=== PATIENT | female | born 1980 | race Caucasian/White ===

== ENCOUNTER 2024-11-06 08:14 | Outpatient (REF) | payer BC, SELFPAY ==
[2024-11-06 15:58] LABS: Ferritin 95 ng/mL (10-250)
[2024-11-06 16:04] LABS: Folate 6.1 ng/mL (> or = 4.0); Vitamin B12 480 pg/mL (200-900)
[2024-11-07 10:13] LABS: Lyme Blot 1.30 index
[2024-11-08 10:15] LABS: Lyme Abs Screen POSITIVE
[2024-11-08 11:53] LABS: Anti Nuclear Antibody Screen NEGATIVE (NEGATIVE)
[2024-11-14 12:38] LABS: 39KD (IgG) Band NON-REACTIVE; 41KD (IgG) Band NON-REACTIVE; Lyme IgG Blot Interp NEGATIVE (NEGATIVE); Lyme IgM Blot Interp NEGATIVE (NEGATIVE)
== END 2024-11-06 08:15 | disposition home or self-care (01) ==
LOC: HO.HKASLDS 08:14
PROVIDERS: PCP Physician Assistant Medical; Visit Provider Psychiatry & Neurology Neurology
DX: R20.2 Paresthesia of skin (principal); R29.6 Repeated falls; M54.9 Dorsalgia, unspecified; G43.109 Migraine with aura, not intractable, without status migrainosus; G89.29 Other chronic pain
CPT/HCPCS: 36415; 82607; 82728; 82746; 86038; 86617; 86618

== ENCOUNTER 2024-11-06 08:14 | Outpatient (AMB) | payer BC, SELFPAY ==
--- NOTE | 2024-11-06 08:16 | A.OFFVIS_ITS ---
Vital Signs 11/06/24 08:20 Height 5 ft 8 in Weight 135 lb BMI 20.5 BP 104/70 Blood Pressure Location Rt brachial Position Sitting Pulse 78 Pulse Source Pulse Oximeter Pulse Oximetry (%) 100 Oxygen Delivery Method Room Air Intake Visit Reasons: ENP-Chronic Headache/Falls/Paresthesias/Numb Intake Note: Patioent presents for chronic headaches Allergies escitalopram (From Lexapro) Allergy (Severe, Verified 11/06/24 08:21) fatigue Penicillins Allergy (Severe, Verified 11/06/24 08:21) Hives azithromycin (From Zithromax) Allergy (Unknown, Verified 11/06/24 08:21) Unknown sulfamethoxazole (From Bactrim) Allergy (Unknown, Verified 11/06/24 08:21) Unknown trimethoprim (From Bactrim) Allergy (Unknown, Verified 11/06/24 08:21) Unknown Medication List - Last Reconciled 11/06/24 by Leila Vega MD citalopram 40 mg PO DAILY sumatriptan succinate 50 mg PO Q2-4H PRN topiramate 200 mg PO DAILY HPI Comments Details: 44y/o Right handed female comes for evaluation of chronic headaches, tingling , numbness - feet , falls . She started having headaches as a teenager - mostly stress related. Currently has severe migraines 1-2 /month and has daily low grade headaches. The migraines s starts with losing peripheral vision , takes imitrex, has a piercing stabbing pain in fronto temporal region, nausea, photophobia, phonophobia, occasional vomiting, loss of vision - can last few hrs to 1 day followed by 1 day of feeling fatigued she also describes daily headaches- low grade, frontal headaches with occasional neck and occipital region .she is able work through it . she started having tingling in her feet- plantar surfaces about 1 year ago. she denies numbness or weakness. she started having frequent falls about 9 mths ago - 6-7 falls from Dec 2023-Jan 2025 . Most were on stairs and while walking - tripping. No falls since then SHe has intermittent back discomfort . she also has bowel incontinence ? occasionally she denies any urinary incontinence. she has depression and is on medictaions she has excessive dyatime fatigue sleeps good at night [facility] Medical History (Updated 11/06/24 @ 10:41 by Leila Vega MD) Chronic headaches Migraine with aura Back pain Falls frequently Bilateral leg paresthesia Right shoulder tendonitis Arthritis of right hip Bicuspid aortic valve Weight loss Arthritis Allergies Hyperlipidemia Depression Surgical History H/O rhinoplasty History of rotator cuff surgery H/O total hysterectomy H/O tubal ligation Hx of tonsillectomy Family History Maternal Aunt Breast CA Social History Alcohol intake: never Patient Tobacco Use Status: Never used Tobacco Physical Exam Vital Signs: Last Vital Signs Pulse 78 11/06/24 08:20 BP 104/70 11/06/24 08:20 Pulse Ox 100 11/06/24 08:20 Oxygen Delivery Method Room Air 11/06/24 08:20 BMI result Body Mass Index 20.5 Const General: cooperative, healthy appearing, comfortable and no acute distress Nutritional Appearance: average body habitus Orientation/consciousness: patient oriented x3 Eyes Pupils: Equal, round and reactive pupils present Neuro General: patient oriented x3, gait normal, tone normal, moves all extremities and no focal motor deficits Cranial nerves: Yes Facial sensation intact/muscles of mastication intact, Yes Equal, round and reactive pupils present, Yes Bilaterally intact EOM present, Yes Nystagmus not present, Yes Normal facial strength present, Yes Midline tongue present, Yes Symmetric palate elevation present and Yes Ability to bilaterally elevate shoulders present Cognition (Neuro): normal cognition Gait exam (Neuro): Normal gait present Motor exam (neuro): 5/5 motor strength present throughout and Normal motor muscle tone present throughout Deep tendon reflexes (DTR's): Right triceps reflex intensity grade: 2+, Left triceps reflex intensity grade: 2+, Rt Biceps (C5, C6): 2+, Left biceps reflex intensity grade: 2+, Right brachioradialis reflex intensity grade: 2+, Left brachioradialis reflex intensity grade: 2+, Right patellar reflex intensity grade: 3+, Left patellar reflex intensity grade: 3+, Right ankle reflex intensity grade: 4+ and Left ankle reflex intensity grade: 3+ Results Reviewed Results Reviewed: MRI BRain w/wo MRI C spine w/wo MRi T spine w/wo Assessment & Plan Assessment & Plan (1) Bilateral leg paresthesia: Code(s): R20.2 - Paresthesia of skin Category: Medical (2) Falls frequently: Comment: Dec -Feb 2024 had multiple falls when she was walking up or down the stairs Code(s): R29.6 - Repeated falls Category: Medical (3) Back pain: Code(s): M54.9 - Dorsalgia, unspecified Category: Medical (4) Migraine with aura: Code(s): G43.109 - Migraine with aura, not intractable, without status migrainosus Category: Medical (5) Chronic headaches: Code(s): R51.9 - Headache, unspecified; G89.29 - Other chronic pain Category: Medical Plan MRI LS spine EMG NCS LE Labs- Ferritin Vit B 12 JOSE FRANCISCO Lyme Ferritin Orders: Orders NE nerve conduction velocity 11/06/24 M54.9 - Dorsalgia, unspecified, R20.2 - Paresthesia of skin, R29.6 - Repeated falls Vitamin B12 and Folate 11/06/24 R20.2 - Paresthesia of skin Ferritin 11/06/24 R20.2 - Paresthesia of skin JOSE FRANCISCO Reflex Titer and Pattern 11/06/24 R20.2 - Paresthesia of skin MR lumbar spine wo/w con 11/06/24 M54.9 - Dorsalgia, unspecified, R20.2 - Paresthesia of skin, R29.6 - Repeated falls NE electromyogram (EMG) 11/06/24 M54.9 - Dorsalgia, unspecified, R20.2 - Paresthesia of skin, R29.6 - Repeated falls Lyme IgG/IgM w/reflex to WB 11/06/24 R20.2 - Paresthesia of skin Coding Level of Care Code New Pt Level 4 (76781) Complex EM visit Add On G2211 Diagnoses Bilateral leg paresthesia R20.2 Falls frequently R29.6 Back pain M54.9 Migraine with aura G43.109 Chronic headaches R51.9; G89.29
[2024-11-06 08:20] VITALS: BP 104/70; PULSE 78; O2SAT 100; BMI 20.5
== END 2024-11-06 08:57 | disposition home or self-care (01) ==
LOC: HO.HSMS 08:14
PROVIDERS: PCP Physician Assistant Medical; Visit Provider Psychiatry & Neurology Neurology
DX: R20.2 Paresthesia of skin (principal); R29.6 Repeated falls; M54.9 Dorsalgia, unspecified; G43.109 Migraine with aura, not intractable, without status migrainosus; R51.9 Headache, unspecified; G89.29 Other chronic pain
CPT/HCPCS: 99204

== ENCOUNTER 2024-11-24 12:39 | Outpatient (REF) | payer BC, SELFPAY ==
--- NOTE | ~2024-11-24 | MR_ITS ---
EXAMINATION: MR LUMBAR SPINE WITHOUT AND WITH CONTRAST CLINICAL INFORMATION: Paresthesia the skin COMPARISON: None available. TECHNIQUE: MRI of the lumbar spine was obtained using routine sequences with and without contrast. Intravenous contrast: Gadolinium based (Gadavist) 6.0 mL. No reported immediate complications. FINDINGS: Last rib-bearing vertebra labeled T12. No bone marrow STIR signal abnormality. No abnormal enhancement within the neural elements of the thecal sac or the prevertebral compartment of the axial skeleton. Normal alignment. Conus medullaris ends at pedicle of L1 with normal signal. Spina bifida occulta S1, congenital. T12-L1: No disc herniation. No neuroforamina stenosis. L1-2: No disc herniation. No neuroforamina stenosis. L2-3: No disc herniation. No neuroforamina stenosis. L3-4: Broad-based disc bulging. Facet joint hypertrophy. No compression upon neural elements. L4-5: Broad-based disc bulging abutting the L5 nerve roots on the lateral recesses. Bilateral neuroforamina narrowing encroaching the exiting nerve roots. Facet joint hypertrophy. L5-S1: Broad-based disc bulging. Facet joint hypertrophy. No central spinal canal stenosis. Bilateral neuroforamina narrowing likely encroaching the L5 exiting roots. No prevertebral compartment hematoma, mass or fluid collection. Subcentimeter cyst, right kidney.. MR/MR lumbar spine wo/w con IMPRESSION: No abnormal enhancement. No acute fracture or listhesis. Spondylosis L4-5 and L5-S1 resulting in bilateral neuroforamina narrowing. No disc herniation and/or extrusion. Electronically signed by: Nima Garcia MD 11/24/2024 01:57 PM EDT
== END 2024-11-24 12:40 | disposition home or self-care (01) ==
LOC: HO.MRI 12:39
PROVIDERS: Visit Provider Psychiatry & Neurology Neurology
DX: R20.2 Paresthesia of skin (principal); R29.6 Repeated falls; M54.9 Dorsalgia, unspecified
CPT/HCPCS: 72158; A9585

== ENCOUNTER → 2024-11-24 12:39 | Outpatient (BNV) | payer BC, SELFPAY | PROVIDERS: Visit Provider Radiology Diagnostic Radiology | DX: M47.817 Spondylosis without myelopathy or radiculopathy, lumbosacral region (principal) | CPT/HCPCS: 72158 ==

== ENCOUNTER 2024-12-29 13:51 | Outpatient (REF) | payer BC, SELFPAY ==
--- NOTE | 2024-12-29 13:53 | EMG_ITS ---
Chief complaint: Bilateral leg paresthesias, frequent falls Reason for referral: Evaluate for radiculopathy versus neuropathy Referred by: Dr. Vega Procedure done: Bilateral lower extremity NCS/EMG Precautions and/or limitations: None The limb temperature was monitored continuously and remained between 32-36 degrees C during the performance of the NCS. Nerve Conduction Studies Anti Sensory Summary Table ?Stim Site NR Onset (ms) Norm Onset (ms) Peak (ms) Norm Peak (ms) O-P Amp (?V) Norm O-P Amp Site1 Site2 Delta-0 (ms) Dist (cm) Umberto (m/s) Norm Umberto (m/s) Left Sural Anti Sensory (Lat Mall) Calf ? 3.3 3.8 <4.0 10.2 >5.0 Calf Lat Mall 3.3 14.0 42 Right Sural Anti Sensory (Lat Mall) Calf ? 2.9 4.0 <4.0 20.6 >5.0 Calf Lat Mall 2.9 14.0 48 Motor Summary Table ?Stim Site NR Onset (ms) Norm Onset (ms) O-P Amp (mV) Norm O-P Amp iAmp (mV) Amp (1st) (%) Site1 Site2 Delta-0 (ms) Dist (cm) Umberto (m/s) Norm Umberto (m/s) Right Peroneal Motor (Ext Dig Brev) Ankle ? 4.0 <4.0 6.3 >2.5 7.4 100.0 Ankle Ext Dig Brev 4.0 0.0 B Fib ? 10.9 6.0 7.1 95.2 B Fib Ankle 6.9 34.0 49 >40 Poplt ? 11.6 6.0 7.1 95.2 Poplt B Fib 0.7 3.5 50 >40 Left Tibial Motor (Abd Bennett Brev) Ankle ? 3.5 <5 13.5 >2.5 18.2 100.0 Ankle Abd Bennett Brev 3.5 0.0 Knee ? 12.1 5.0 7.1 37.0 Knee Ankle 8.6 37.5 44 >40 Right Tibial Motor (Abd Bnenett Brev) Ankle ? 3.6 <5 13.6 >2.5 21.1 100.0 Ankle Abd Bennett Brev 3.6 0.0 Knee ? 11.3 6.8 10.7 50.0 Knee Ankle 7.7 39.0 51 >40 EMG ?Side Muscle Nerve Root Ins Act Fibs Psw Amp Dur Poly Recrt Int Pat Comment Right AbdHallucis MedPlantar S1-2 Nml Nml Nml Nml Nml 0 Nml Complete Right AntTibialis Dp Br Peron L4-5 Nml Nml Nml Nml Nml 0 Nml Complete Right PostTibialis Tibial L5, S1 Nml Nml Nml Nml Nml 0 Nml Complete Right MedGastroc Tibial S1-2 Nml Nml Nml Nml Nml 0 Nml Complete Right VastusMed Femoral L2-4 Nml Nml Nml Nml Nml 0 Nml Complete Left AbdHallucis MedPlantar S1-2 Nml Nml Nml Nml Nml 0 Nml Complete Left AntTibialis Dp Br Peron L4-5 Nml Nml Nml Nml Nml 0 Nml Complete Left PostTibialis Tibial L5, S1 Nml Nml Nml Nml Nml 0 Nml Complete Left MedGastroc Tibial S1-2 Nml Nml Nml Nml Nml 0 Nml Complete Left VastusMed Femoral L2-4 Nml Nml Nml Nml Nml 0 Nml Complete Paraspinal EMG ?Side Muscle Nerve Root Ins Act Fibs Psw Comment Right Lumbar Upper Rami Nml Nml Nml Right Lumbar Mid Rami Nml Nml Nml Right Lumbar Lower Rami Nml Nml Nml Left Lumbar Upper Rami Nml Nml Nml Left Lumbar Mid Rami Nml Nml Nml Left Lumbar Lower Rami Nml Nml Nml FINDINGS: All motor and sensory nerves tested showed normal latencies, amplitudes and conduction velocities. Concentric needle EMG was performed in selected muscles of the bilateral lower extremity and lumbar paraspinals. Study did not reveal signs of electric abnormalities as shown in the table above. IMPRESSION: 1. This is a normal study. 2. There is no electrodiagnostic evidence for peroneal neuropathy, tibial neuropathy, lumbosacral plexopathy, lumbar radiculopathy, or peripheral neuropathy. Thank you for your kind referral. Lilli Silva MD, NAILA Board Certified, [place] [employer] and Rehabilitation (ABPMR) Board Certified, [place] Board of Electrodiagnostic Medicine (ABEM) CODIN [id number] x 2 [facility]
== END 2024-12-29 13:52 | disposition home or self-care (01) ==
LOC: HO.NEURO 13:51
PROVIDERS: Visit Provider Psychiatry & Neurology Neurology
DX: R20.2 Paresthesia of skin (principal); R29.6 Repeated falls; M54.9 Dorsalgia, unspecified
CPT/HCPCS: 95886; 95909

== ENCOUNTER → 2024-12-29 13:53 | Outpatient (BNV) | payer BC, SELFPAY | PROVIDERS: Visit Provider Physical Medicine & Rehabilitation | DX: R20.2 Paresthesia of skin (principal) | CPT/HCPCS: 95886; 95911 ==

== ENCOUNTER 2025-01-12 09:43 | Outpatient (AMB) | payer BC, SELFPAY ==
[2025-01-12 10:06] VITALS: BP 118/76; PULSE 77; O2SAT 100; BMI 21.0
--- NOTE | 2025-01-12 10:06 | MHC.OFFVIS ---
Vital Signs 01/12/25 10:06 Height 5 ft 8 in Weight 138 lb 2 oz BMI 21.0 BP 118/76 Blood Pressure Location Rt brachial Position Sitting Pulse 77 Pulse Source Pulse Oximeter Pulse Oximetry (%) 100 Oxygen Delivery Method Room Air Intake Visit Reasons: 2 mo follow up Intake Note: Patient presents follow up Paresthesia/Migraine. Labs/EMG/MRI in chart. Patient states has had few migraines. takes medication takes awhile to work and is flat on her back. After migraine has a 2-3 day migraine hangover . Patient states she is frustrated when she went into EMG right leg lost control(shaking). NO mention of incident in her report. Wants some answerers. Patient has had multiple falls due to leg giving. Has paid much attention if both or just right leg. Accompanied by: Self / Same As Patient Allergies escitalopram (From Lexapro) Allergy (Severe, Verified 01/12/25 10:11) fatigue Penicillins Allergy (Severe, Verified 01/12/25 10:11) Hives azithromycin (From Zithromax) Allergy (Unknown, Verified 01/12/25 10:11) Unknown sulfamethoxazole (From Bactrim) Allergy (Unknown, Verified 01/12/25 10:11) Unknown trimethoprim (From Bactrim) Allergy (Unknown, Verified 01/12/25 10:11) Unknown HPI Comments Details: 44y/o Right handed female presents for an evaluation of chronic headaches, tingling in hands, neuropathy and falls. Lumbar MRI reviewed with pt. today degenerative changes. EMG / NCS reviwed with pt normal findings. She feels chronically fatigued and wakes up with headaches. She started having headaches as a teenager - mostly stress related. Currently has severe migraines 1-2 /month and has daily low grade headaches. She was diagnosed with Lyme disease per +labs/ titers, and completed a 2 week course of Doxycycline. The migraines start with loss of peripheral vision, stabbing pain in frontal temporal region, neck pain nausea, photophobia, phonophobia, occasional vomiting. This can last few hrs to 1 day followed by 1 day of feeling completely fatigued. She started having tingling in her feet- plantar surfaces about 1 year ago. she denies numbness or weakness. she started having frequent falls about 9 mths ago, about 6-7x falls from Dec 2023 to Jan 2025. She feels like her legs get shaky, r>l. she lost control of her r. leg and fell during her EMG/NCS, and has not felt well since the testing. Most were on stairs and while walking up the stairs she was tripping and noticed foot drop. She has intermittent back discomfort and spina bifida occulta. She also has bowel incontinence occasionally. She denies any urinary incontinence. She has depression managed with citalopram 40mg. She does not use any assisted devices. [facility] Medical History Chronic headaches Migraine with aura Back pain Falls frequently Bilateral leg paresthesia Right shoulder tendonitis Arthritis of right hip Bicuspid aortic valve Weight loss Arthritis Allergies Hyperlipidemia Depression Surgical History H/O rhinoplasty History of rotator cuff surgery H/O total hysterectomy H/O tubal ligation Hx of tonsillectomy Family History Maternal Aunt Breast CA Social History Alcohol intake: never Patient Tobacco Use Status: Never used Tobacco Physical Exam Vital Signs: Last Vital Signs Pulse 77 01/12/25 10:06 BP 118/76 01/12/25 10:06 Pulse Ox 100 01/12/25 10:06 Oxygen Delivery Method Room Air 01/12/25 10:06 BMI result Body Mass Index 21.0 Const General: cooperative, healthy appearing, comfortable and no acute distress Nutritional Appearance: average body habitus Orientation/consciousness: patient oriented x3 Eyes Pupils: Equal, round and reactive pupils present Neuro Other: hyper reflexes Lower extremities General: patient oriented x3, gait normal, tone normal, moves all extremities and no focal motor deficits Cranial nerves: Yes Facial sensation intact/muscles of mastication intact, Yes Equal, round and reactive pupils present, Yes Bilaterally intact EOM present, Yes Nystagmus not present, Yes Normal facial strength present, Yes Midline tongue present, Yes Symmetric palate elevation present and Yes Ability to bilaterally elevate shoulders present Cognition (Neuro): normal cognition Gait exam (Neuro): Normal gait present Motor exam (neuro): 5/5 motor strength present throughout and Normal motor muscle tone present throughout Deep tendon reflexes (DTR's): Right triceps reflex intensity grade: 2+, Left triceps reflex intensity grade: 2+, Rt Biceps (C5, C6): 2+, Left biceps reflex intensity grade: 2+, Right brachioradialis reflex intensity grade: 2+, Left brachioradialis reflex intensity grade: 2+, Right patellar reflex intensity grade: 3+, Left patellar reflex intensity grade: 3+, Right ankle reflex intensity grade: 4+ and Left ankle reflex intensity grade: 3+ Psych Appearance: grossly normal Mental Status: mental status grossly normal Thought process: Normal thought process present Thought content: Normal thought content present Results Reviewed Results Reviewed: MRI MR/MR lumbar spine wo/w con IMPRESSION: No abnormal enhancement. No acute fracture or listhesis. Spondylosis L4-5 and L5-S1 resulting in bilateral neuroforamina narrowing. No disc herniation and/or extrusion. EMG / NCS IMPRESSION: 1. This is a normal study. 2. There is no electrodiagnostic evidence for peroneal neuropathy, tibial neuropathy, lumbosacral plexopathy, lumbar radiculopathy, or peripheral neuropathy. Assessment & Plan Assessment & Plan (1) Bilateral leg paresthesia: Code(s): R20.2 - Paresthesia of skin Category: Medical (2) Falls frequently: Comment: Dec -Feb 2024 had multiple falls when she was walking up or down the stairs Code(s): R29.6 - Repeated falls Category: Medical (3) Back pain: Code(s): M54.9 - Dorsalgia, unspecified Category: Medical Qualifiers: Back pain location: low back pain Chronicity: chronic Back pain laterality: right Sciatica presence: with sciatica Sciatica laterality: bilateral sciatica Qualified Code(s): M54.41 - Lumbago with sciatica, right side; M54.42 - Lumbago with sciatica, left side; G89.29 - Other chronic pain (4) Chronic headaches: Code(s): R51.9 - Headache, unspecified; G89.29 - Other chronic pain Category: Medical Qualifiers: Headache type: unspecified Intractability: intractable Qualified Code(s): R51.9 - Headache, unspecified; G89.29 - Other chronic pain (5) Spondylolysis of lumbar region: Code(s): M43.06 - Spondylolysis, lumbar region Category: Medical Plan MRI LS spine reviewed with pt. today spina bifida occulta and degenerative changes of the spine. EMG NCS LE reviewed with pt. raduculopathy. PT referral for strength training and stretching exercises if pt is amenable. Pain management for corticosteroid injections if pt. is amenable. Foot ortho AFO braces justino and mirna r. foot. Excessive daytime fatigue HST for sleep apnea evaluation Labs- Ferritin Vit B 12 JOSE FRANCISCO Lyme Ferritin. Orders: Orders PT Evaluation and Treatment Today M43.06 - Spondylolysis, lumbar region RT home sleep study Today G47.19 - Other hypersomnia Medications: New topiramate 200 mg PO DAILY 30 tabs 3RF Patient Instructions: Sleep Hygiene provided: set a scheduled bedtime and wake time to help regulate the circadian rhythm and balance the release of pituitary hormones. Sleep in a dark room, temperatures below 68 degrees, and no devices n bed. Limit caffeinated products 6 hours prior to bed, and limit fluids 2-4 hours prior to bed. Gentle night yoga, diffusing essential oils, and playing soft music can be relaxing. May f/u with Lyme specialist or functional medicine provider for lyme. MRI reviewed with pt. spondylolysis. EMG/ NCS is normal. Coding Level of Care Code Est Pt Level 4 (89667) Diagnoses Bilateral leg paresthesia R20.2 Falls frequently R29.6 Chronic right-sided low back pain with bilateral sciatica M54.41; M54.42; G89.29 Back pain location: low back pain Chronicity: chronic Back pain laterality: right Sciatica presence: with sciatica Sciatica laterality: bilateral sciatica Chronic intractable headache, unspecified headache type R51.9; G89.29 Headache type: unspecified Intractability: intractable Spondylolysis of lumbar region M43.06
== END 2025-01-12 11:01 | disposition home or self-care (01) ==
LOC: HO.HSMS 09:43
PROVIDERS: PCP Physician Assistant Medical; Visit Provider Physician Assistant Medical
DX: R20.2 Paresthesia of skin (principal); R29.6 Repeated falls; M54.41 Lumbago with sciatica, right side; M54.42 Lumbago with sciatica, left side; G89.29 Other chronic pain; R51.9 Headache, unspecified; M43.06 Spondylolysis, lumbar region
CPT/HCPCS: 99214

== ENCOUNTER 2025-03-12 07:54 | Outpatient (AMB) | payer BC, SELFPAY ==
[2025-03-12 07:56] VITALS: BP 108/76; PULSE 72; O2SAT 97; BMI 21.4
--- NOTE | 2025-03-12 07:56 | A.OFFVIS_ITS ---
Vital Signs 03/12/25 07:56 Height 5 ft 8 in Weight 141 lb BMI 21.4 BP 108/76 Blood Pressure Location Rt brachial Position Sitting Pulse 72 Pulse Source Pulse Oximeter Pulse Oximetry (%) 97 Oxygen Delivery Method Room Air Intake Visit Reasons: 4 mo follow up-LVM Intake Note: Follow up Bilateral leg paresthesia, frequent falls and back pain Sample Maker Hand Required: No Accompanied by: Self / Same As Patient Allergies escitalopram (From Lexapro) Allergy (Severe, Verified 03/12/25 07:56) fatigue Penicillins Allergy (Severe, Verified 03/12/25 07:56) Hives azithromycin (From Zithromax) Allergy (Unknown, Verified 03/12/25 07:56) Unknown sulfamethoxazole (From Bactrim) Allergy (Unknown, Verified 03/12/25 07:56) Unknown trimethoprim (From Bactrim) Allergy (Unknown, Verified 03/12/25 07:56) Unknown Medication List - Last Reconciled 03/12/25 by Leila Vega MD citalopram 40 mg PO DAILY cyanocobalamin (vitamin B-12) 1,000 mcg PO DAILY sumatriptan succinate 50 mg PO Q2-4H PRN topiramate 200 mg PO DAILY HPI Comments Details: 44y/o Right handed female comes for follow up. EMg showed crispin L4-5 ,L5-S1 radiculopathy . she still falls numbness and becomes weak intermittently in her Right leg she has an appointment with - Saravanan she reports increase in headaches- daily headaches have increased in intensity and she has more than 3 migraines a month. History form her initial visit 10/2024-she is here for chronic headaches, tingling , numbness - feet , falls . She started having headaches as a teenager - mostly stress related. Currently has severe migraines 1-2 /month and has daily low grade headaches. The migraines s starts with losing peripheral vision , takes imitrex, has a piercing stabbing pain in fronto temporal region, nausea, photophobia, phonophobia, occasional vomiting, loss of vision - can last few hrs to 1 day followed by 1 day of feeling fatigued she also describes daily headaches- low grade, frontal headaches with occasional neck and occipital region .she is able work through it . she started having tingling in her feet- plantar surfaces about 1 year ago. she denies numbness or weakness. she started having frequent falls about 9 mths ago - 6-7 falls from Dec 2023-Jan 2025 . Most were on stairs and while walking - tripping. No falls since then SHe has intermittent back discomfort . she also has bowel incontinence ? occasionally she denies any urinary incontinence. she has depression and is on medictaions she has excessive dyatime fatigue sleeps good at night [facility] Medical History (Updated 03/12/25 @ 08:29 by Leila Vega MD) Sciatica associated with disorder of lumbar spine Chronic headaches Migraine with aura Back pain Falls frequently Bilateral leg paresthesia Right shoulder tendonitis Arthritis of right hip Bicuspid aortic valve Weight loss Arthritis Allergies Hyperlipidemia Depression Surgical History H/O rhinoplasty History of rotator cuff surgery H/O total hysterectomy H/O tubal ligation Hx of tonsillectomy Family History Maternal Aunt Breast CA Social History Alcohol intake: never Patient Tobacco Use Status: Never used Tobacco Physical Exam Vital Signs: Last Vital Signs Pulse 72 03/12/25 07:56 BP 108/76 03/12/25 07:56 Pulse Ox 97 03/12/25 07:56 Oxygen Delivery Method Room Air 03/12/25 07:56 BMI result Body Mass Index 21.4 Const General: cooperative, healthy appearing, comfortable and no acute distress Nutritional Appearance: average body habitus Orientation/consciousness: patient oriented x3 Eyes Pupils: Equal, round and reactive pupils present Neuro General: patient oriented x3, gait normal, tone normal, moves all extremities and no focal motor deficits Cranial nerves: Yes Facial sensation intact/muscles of mastication intact, Yes Equal, round and reactive pupils present, Yes Bilaterally intact EOM present, Yes Nystagmus not present, Yes Normal facial strength present, Yes Midline tongue present, Yes Symmetric palate elevation present and Yes Ability to bilaterally elevate shoulders present Cognition (Neuro): normal cognition Gait exam (Neuro): Normal gait present Motor exam (neuro): 5/5 motor strength present throughout and Normal motor muscle tone present throughout Deep tendon reflexes (DTR's): Right triceps reflex intensity grade: 2+, Left triceps reflex intensity grade: 2+, Rt Biceps (C5, C6): 2+, Left biceps reflex intensity grade: 2+, Right brachioradialis reflex intensity grade: 2+, Left brachioradialis reflex intensity grade: 2+, Right patellar reflex intensity grade: 3+, Left patellar reflex intensity grade: 3+, Right ankle reflex intensity grade: 4+ and Left ankle reflex intensity grade: 3+ Assessment & Plan Assessment & Plan (1) Spondylolysis of lumbar region: Code(s): M43.06 - Spondylolysis, lumbar region Category: Medical (2) Sciatica associated with disorder of lumbar spine: Code(s): M53.86 - Other specified dorsopathies, lumbar region Category: Medical (3) Falls frequently: Comment: Dec -Feb 2024 had multiple falls when she was walking up or down the stairs Code(s): R29.6 - Repeated falls Category: Medical (4) Back pain: Code(s): M54.9 - Dorsalgia, unspecified Category: Medical Qualifiers: Back pain location: low back pain Chronicity: chronic Back pain laterality: right Sciatica presence: with sciatica Sciatica laterality: bilateral sciatica Qualified Code(s): M54.41 - Lumbago with sciatica, right side; M54.42 - Lumbago with sciatica, left side; G89.29 - Other chronic pain (5) Migraine with aura: Code(s): G43.109 - Migraine with aura, not intractable, without status migrainosus Category: Medical Qualifiers: Status migrainosus presence: without status migrainosus Intractability: intractable Qualified Code(s): G43.119 - Migraine with aura, intractable, without status migrainosus (6) Chronic headaches: Code(s): R51.9 - Headache, unspecified; G89.29 - Other chronic pain Category: Medical Qualifiers: Headache type: unspecified Intractability: intractable Qualified Code(s): R51.9 - Headache, unspecified; G89.29 - Other chronic pain Plan MRI LS spine- L4-5 and L5-S1 crispin L5 nerve impingement. Labs- Ferritin Vit B 12 JOSE FRANCISCO Lyme - normal EMG - was normal . During the procedure patient had numbness in her right leg - lasting about 1 minute. Will refer to PT for falls , back etc Seeing in May 2025 Trial amitriptyline 10mg qhs to decrease headaches continue riboflavin and magnesium Continue sumatriptan 50 mg as needed Topiramate 200mg qhs Orders: Orders PT Evaluation and Treatment 01/15/25 M43.06 - Spondylolysis, lumbar region Medications: New amitriptyline 10 mg PO BEDTIME 30 tabs 4RF Coding Level of Care Code Est Pt Level 4 (36290) Complex EM visit Add On G2211 Diagnoses Spondylolysis of lumbar region M43.06 Sciatica associated with disorder of lumbar spine M53.86 Falls frequently R29.6 Chronic right-sided low back pain with bilateral sciatica M54.41; M54.42; G89. 29 Back pain location: low back pain Chronicity: chronic Back pain laterality: right Sciatica presence: with sciatica Sciatica laterality: bilateral sciatica Intractable migraine with aura without status migrainosus G43.119 Status migrainosus presence: without status migrainosus Intractability: intractable Chronic intractable headache, unspecified headache type R51.9; G89.29 Headache type: unspecified Intractability: intractable
== END 2025-03-12 08:43 | disposition home or self-care (01) ==
LOC: HO.HSMS 07:55
PROVIDERS: PCP Physician Assistant Medical; Visit Provider Psychiatry & Neurology Neurology
DX: M43.06 Spondylolysis, lumbar region (principal); M53.86 Other specified dorsopathies, lumbar region; R29.6 Repeated falls; M54.41 Lumbago with sciatica, right side; M54.42 Lumbago with sciatica, left side; G89.29 Other chronic pain; G43.119 Migraine with aura, intractable, without status migrainosus; R51.9 Headache, unspecified
CPT/HCPCS: 99214